=== PATIENT | male | born 1935 | race Caucasian/White ===

== ENCOUNTER → 2017-02-05 | Outpatient (CLI) | payer OTHER ==
[2017-02-05 14:27] LABS: BLOOD GAS BASE EXCESS -2.2 mmol/L (-2-2); BLOOD GAS CARBOXYHEMOGLOBIN 1.7 % (0-4); BLOOD GAS HCO3 22 mmol/L (22-26); BLOOD GAS O2 HGB SATURATION 94 % (90-100); BLOOD GAS PCO2 36 mmHg (38-42); BLOOD GAS PO2 85 mmHg (61-120); BLOOD GAS TOTAL HGB 14.4 G/DL (12.0-16.0); TEMP CORR TO 98.6
[2017-02-05 14:28] LABS: CRITICAL VALUE NO; FIO2 21 %; NUMBER OF ARTERIAL PUNCTURES 1; STAT NO; ULNAR PULSE PRESENT
--- NOTE | 2017-02-10 08:15 | RSPPFT ---
DATE OF PROCEDURE: 02/05/17 COMMENTS: VOLUMES DYNAMIC: FVC and FEV1 moderately reduced. STATIC: TLC and FRC normal; RV mildly increased. FLOWS: FEV1% mildly reduced; FEF 25-75 severely reduced. DIFFUSION: Moderately reduced. FLOW VOLUME LOOP: Pattern of variable intrathoracic airways obstruction. IMPRESSION: Moderately severe obstructive ventilatory defect with reduction in diffusion and mild hyperinflation consistent with emphysema. Airways resistance is increased and he has significant improvement post-bronchodilator.
== END ==
LOC: HRSP 12:30
PROVIDERS: ATTEND Internal Medicine
DX: J44.9 Chronic obstructive pulmonary disease, unspecified (principal)
CPT/HCPCS: 36600; 82805; 94060; 94620; 94726; 94729

== ENCOUNTER 2018-01-26 12:35 | Inpatient (IN) ==
--- NOTE | 2018-01-26 13:06 | ED ---
HPI General Chief complaint: Shortness of Breath/Dyspnea Stated complaint: SOB Time Seen by Provider: 01/26/18 12:52 History of Present Illness HPI narrative: Patient is a 2-year-old male here for evaluation of shortness of breath. Patient has been having shortness of breath for the last few months that has been getting worse recently, he can only walk 10 feet without getting short of breath. Patient has history of A. fib was started on Xarelto but he stopped it on his own because he was getting bruises, his history of diabetes that he says "it is diet-controlled", history of hypertension and congestive heart failure he takes lisinopril 40 mg in the morning. He has history of CAD status post quadruple bypass. He has bilateral leg swelling and redness that he follows up with the employment services director for it. Patient has history of COPD and takes anoro inhaler once in the morning, no albuterol, states that the anoro is not helping as much. Patient denies any chest pain or cough, no abdominal pain , no headache or blurred vision. Related Data Home Medications Medication Instructions Recorded Confirmed oxycodone 10 mg PO HS PRN 01/26/18 01/26/18 umeclidinium-vilanterol [Anoro 1 dose INHALATION DAILY 01/26/18 01/26/18 Ellipta] Allergies Allergy/AdvReac Type Severity Reaction Status Date / Time No Known Allergies Allergy Unverified 01/26/18 12:45 Review of Systems Except as stated in HPI: all other systems reviewed are negative PENDING SALE TO [facility] Medical History Medical History Bypass graft stenosis (Acute) COPD (chronic obstructive pulmonary disease) (Acute) Diabetes (Acute) Skin abnormalities (Acute) Social History Social History Substance History: No History of Abuse Second Hand Smoke Exposure: No Smoking Status: Never smoker How Often Do You Have a Drink Containing Alcohol: Monthly or less Recent Travel in [facility] within the Last 8 Weeks: No Recent Out of Country Travel within the Last 8 Weeks: No Immunization History Tetanus Immunization: >5 Years Hx Influenza Vaccine This Season: Yes Exam Narrative Exam Narrative: GENERAL: Alert oriented 3 no acute distress SKIN: Focused skin assessment warm/dry. HEAD: Atraumatic. Normocephalic. EYES: Pupils equal and round. No scleral icterus. No injection or drainage. ENT: No nasal bleeding or discharge. Mucous membranes pink and moist. NECK: Trachea midline. No JVD. CARDIOVASCULAR: Regular rate and rhythm. No murmur appreciated. RESPIRATORY: No accessory muscle use. Clear to auscultation. Breath sounds equal bilaterally. GASTROINTESTINAL: Abdomen soft, non-tender, nondistended. Hepatic and splenic margins not palpable. MUSCULOSKELETAL: Bilateral leg none pitting edema, mildly warm to touch, areas of old pus, no obvious deformities. No clubbing. No cyanosis. No edema. NEUROLOGICAL: Awake and alert. No obvious cranial nerve deficits. Motor grossly within normal limits. Normal speech. PSYCHIATRIC: Appropriate mood and affect; insight and judgment normal. Course Initial Documented Vital Signs Temperature 97.5 F L 01/26/18 12:42 Pulse Rate 76 01/26/18 12:42 Respiratory Rate 22 01/26/18 12:42 Blood Pressure 153/79 H 01/26/18 12:42 Pulse Oximetry 86 L 01/26/18 12:42 Last Documented Vital Signs Temperature 97.5 F L 01/26/18 12:42 Pulse Rate 62 01/26/18 14:55 Respiratory Rate 18 01/26/18 14:55 Blood Pressure 127/64 01/26/18 14:55 Pulse Oximetry 96 01/26/18 14:55 Medical Decision Making [facility] Narrative Medical decision making narrative: 82-year-old male history of COPD, congestive heart failure, hypertension, A. fib here for shortness of breath, EKG shows atrial fibrillation with reasonably controlled rate of 64, no ST segment elevation or depression. Patient is here for shortness of breath. D-dimer is mildly elevated, CAT scan shows bilateral pleural effusion which could explain the symptoms. Patient has mild hypokalemia of 3.2 I give him 40 mEq p.o. KCl meanwhile I give the patient 40 mg of Lasix IV to initiate diuresis and help with the symptoms. I believe the patient has acute exacerbation of CHF and will benefit from admission. Lab Data Result diagrams: 01/26/18 13:10 01/26/18 13:10 Lab Results 01/26/18 01/26/18 01/26/18 Range/Units 13:10 13:10 13:10 CBC w Diff Slide review pending WBC 6.2 (4.0-11.0) th/mm3 RBC 4.59 (4.50-5.90) mil/mm3 Hgb 14.0 (13.0-17.0) gm/dL Hct 41.4 (39.0-51.0) % MCV 90.4 (80.0-100.0) fL MCH 30.6 (27.0-34.0) pg MCHC 33.8 (32.0-36.0) % RDW 13.4 (11.6-17.2) % Plt Count 184 (150-450) th/mm3 MPV 8.0 (7.0-11.0) fL Neut % (Auto) 73.2 H (16.0-70.0) % Lymph % (Auto) 11.2 (9.0-44.0) % [place] % (Auto) 13.1 H (0.0-8.0) % Eos % (Auto) 2.3 (0.0-4.0) % Baso % (Auto) 0.2 (0.0-2.0) % Neut # (Auto) 4.6 (1.8-7.7) th/mm3 Lymph # (Auto) 0.7 L (1.0-4.8) th/mm3 [place] # (Auto) 0.8 (0.0-0.9) th/mm3 Eos # (Auto) 0.1 (0.0-0.4) th/mm3 Baso # (Auto) 0.0 (0.0-0.2) th/mm3 WBC Differential . Diff Scan Auto diff confirmed Differential Comment . PT 11.6 (9.8-11.6) sec INR 1.1 Ratio APTT 26.0 (24.3-30.1) sec D-Dimer Quant (PE/DVT) 1.31 H (0.00-0.50) mg/L FEU Puncture Site Patient Temperature O2 Saturation (90-100) % ABG pH (7.380-7.420) ABG pCO2 (38-42) mmHg ABG pO2 (61-120) mmHg ABG HCO3 (22-26) mmol/L ABG O2 Content (12.0-20.0) Vol % ABG Base Excess (-2-2) mmol/L ABG Methemoglobin (0-2) % Jose Test Hemoglobin (12.0-16.0) G/DL Carboxyhemoglobin (0-4) % O2 Delivery Device Inspired O2 % Critical Value Sodium 141 (136-145) meq/L Potassium 3.2 L (3.5-5.1) meq/L Chloride 107 (98-107) meq/L Carbon Dioxide 24.2 (21.0-32.0) meq/L Anion Gap 10 (5-15) meq/L BUN 19 H (7-18) mg/dL Creatinine 1.10 (0.60-1.30) mg/dL Estimated GFR 64 L (>89) mL/min Random Glucose 116 H (74-106) mg/dL Calcium 8.3 L (8.5-10.1) mg/dL Total Bilirubin 1.2 H (0.2-1.0) mg/dL AST 14 L (15-37) U/L ALT 14 (12-78) U/L Alkaline Phosphatase 97 (45-117) U/L Total Creatine Kinase 67 (39-308) U/L Troponin I Less than 0.02 L (0.02-0.05) ng/mL B-Natriuretic Peptide (0-100) pg/mL Total Protein 6.8 (6.4-8.2) g/dL Albumin 3.6 (3.4-5.0) g/dL Lipase 36 L (73-393) U/L Ur Collection Type Urine Color (Yellw/Straw) Urine Clarity (Clear) Urine pH (5.0-8.5) Ur Specific [place] (1.002-1.035) Urine Protein (Neg-Trace) mg/dL Urine Glucose (UA) (Negative) mg/dL Urine Ketones (Negative) mg/dL Urine Occult Blood (Negative) Urine Nitrate (Negative) Urine Bilirubin (Negative) Urine Urobilinogen (Less than 2) mg/dL Ur Leukocyte Esterase (Negative) Ur Squamous Epith Cells (0-5) /hpf Micro UA Comment Urine Culture Comments Urine Collection Time hours 01/26/18 01/26/18 01/26/18 Range/Units 13:10 13:30 13:35 CBC w Diff WBC (4.0-11.0) th/mm3 RBC (4.50-5.90) mil/mm3 Hgb (13.0-17.0) gm/dL Hct (39.0-51.0) % MCV (80.0-100.0) fL MCH (27.0-34.0) pg MCHC (32.0-36.0) % RDW (11.6-17.2) % Plt Count (150-450) th/mm3 MPV (7.0-11.0) fL Neut % (Auto) (16.0-70.0) % Lymph % (Auto) (9.0-44.0) % [place] % (Auto) (0.0-8.0) % Eos % (Auto) (0.0-4.0) % Baso % (Auto) (0.0-2.0) % Neut # (Auto) (1.8-7.7) th/mm3 Lymph # (Auto) (1.0-4.8) th/mm3 [place] # (Auto) (0.0-0.9) th/mm3 Eos # (Auto) (0.0-0.4) th/mm3 Baso # (Auto) (0.0-0.2) th/mm3 WBC Differential Diff Scan Differential Comment PT (9.8-11.6) sec INR Ratio APTT (24.3-30.1) sec D-Dimer Quant (PE/DVT) (0.00-0.50) mg/L FEU Puncture Site Right radial Patient Temperature 98.6 O2 Saturation 89 L* (90-100) % ABG pH 7.43 H (7.380-7.420) ABG pCO2 37 L (38-42) mmHg ABG pO2 64 (61-120) mmHg ABG HCO3 24 (22-26) mmol/L ABG O2 Content 17.7 (12.0-20.0) Vol % ABG Base Excess -0.1 (-2-2) mmol/L ABG Methemoglobin 1.2 (0-2) % Jose Test Present Hemoglobin 14.1 (12.0-16.0) G/DL Carboxyhemoglobin 2.2 (0-4) % O2 Delivery Device Room air Inspired O2 21 % Critical Value Yes Sodium (136-145) meq/L Potassium (3.5-5.1) meq/L Chloride (98-107) meq/L Carbon Dioxide (21.0-32.0) meq/L Anion Gap (5-15) meq/L BUN (7-18) mg/dL Creatinine (0.60-1.30) mg/dL Estimated GFR (>89) mL/min Random Glucose (74-106) mg/dL Calcium (8.5-10.1) mg/dL Total Bilirubin (0.2-1.0) mg/dL AST (15-37) U/L ALT (12-78) U/L Alkaline Phosphatase (45-117) U/L Total Creatine Kinase (39-308) U/L Troponin I (0.02-0.05) ng/mL B-Natriuretic Peptide 340 H (0-100) pg/mL Total Protein (6.4-8.2) g/dL Albumin (3.4-5.0) g/dL Lipase (73-393) U/L Ur Collection Type Clean catch Urine Color Yellow (Yellw/Straw) Urine Clarity Clear (Clear) Urine pH 5.5 (5.0-8.5) Ur Specific [place] 1.015 (1.002-1.035) Urine Protein Trace (Neg-Trace) mg/dL Urine Glucose (UA) Negative (Negative) mg/dL Urine Ketones Negative (Negative) mg/dL Urine Occult Blood Negative (Negative) Urine Nitrate Negative (Negative) Urine Bilirubin Negative (Negative) Urine Urobilinogen 0.2 (Less than 2) mg/dL Ur Leukocyte Esterase Negative (Negative) Ur Squamous Epith Cells 0-5 (0-5) /hpf Micro UA Comment Culture not ind Urine Culture Comments Culture not ind Urine Collection Time 1335 hours Imaging Data Radiologist's impression: ITS Impressions Chest CTA 01/26/18 13:36 CONCLUSION: 1. No pulmonary embolus. Main pulmonary artery is prominent suggesting some degree of pulmonary hypertension. 2. Moderate bilateral pleural effusions. This probably explains patient's current clinical symptoms. 3. Prominent 2.3 cm lymph node juxtaposed between the esophagus and the aorta near the AP window. Additional prominent lymph node in the right subpleural distribution at the thoracoabdominal junction. This may be reactive. 4. Mild emphysematous changes scattered subpleural cysts. 5. CT findings concerning for some degree of cirrhosis with a small, nodular liver and some ascites in the upper abdomen. Discharge Plan Physicians Team ED Provider: Jan Purdy Primary Care Provider: Jluis Luna Rxs /Orders / Referrals /Forms Prescriptions: No Action oxycodone 10 mg Tablet 10 mg PO HS PRN (Reason: Pain) RF: 0 umeclidinium-vilanterol [Anoro Ellipta] 62.5-25 mcg/actuation Blister With Device 1 dose Inhalation DAILY RF: 0 Discharge Interventions Interventions: Vital Signs Last Done: 01/26/18 14:55 Status ED Status: Pending Admission
[2018-01-26 13:23] LABS: Baso % (Auto) 0.2 % (0.0-2.0); Eos # (Auto) 0.1 th/mm3 (0.0-0.4); Eos % (Auto) 2.3 % (0.0-4.0); Hematocrit 41.4 % (39.0-51.0); Lymph # (Auto) 0.7 th/mm3 (1.0-4.8); Lymph % (Auto) 11.2 % (9.0-44.0); Mean Corpuscular HGB Conc 33.8 % (32.0-36.0); Mean Corpuscular Hemoglobin 30.6 pg (27.0-34.0); Mean Corpuscular Volume 90.4 fL (80.0-100.0); Mono # (Auto) 0.8 th/mm3 (0.0-0.9); Mono % (Auto) 13.1 % (0.0-8.0); Neut # (Auto) 4.6 th/mm3 (1.8-7.7); Neut % (Auto) 73.2 % (16.0-70.0); Platelet Count 184 th/mm3 (150-450); Red Blood Count 4.59 mil/mm3 (4.50-5.90); Red Cell Distribution Width 13.4 % (11.6-17.2); White Blood Count 6.2 th/mm3 (4.0-11.0)
[2018-01-26 13:25] LABS: Chloride 107 meq/L (98-107); Potassium 3.2 meq/L (3.5-5.1); Sodium 141 meq/L (136-145)
[2018-01-26 13:28] LABS: Albumin 3.6 g/dL (3.4-5.0); Calcium 8.3 mg/dL (8.5-10.1)
[2018-01-26 13:29] LABS: Anion Gap 10 meq/L (5-15); Blood Urea Nitrogen 19 mg/dL (7-18); Carbon Dioxide 24.2 meq/L (21.0-32.0); Glucose,Random 116 mg/dL (74-106); Lipase 36 U/L (73-393)
[2018-01-26 13:31] LABS: D-Dimer 1.31 mg/L FEU (0.00-0.50); INR 1.1 Ratio; Prothrombin Time 11.6 sec (9.8-11.6)
[2018-01-26 13:32] LABS: Alanine Aminotransferase 14 U/L (12-78); Aspartate Aminotransferase 14 U/L (15-37); Glomerular Filtration Rate 64 mL/min (>89)
[2018-01-26 13:34] LABS: Total Protein 6.8 g/dL (6.4-8.2)
[2018-01-26 13:35] LABS: Alkaline Phosphatase 97 U/L (45-117); Creatine Kinase 67 U/L (39-308)
[2018-01-26 13:38] LABS: ABG Base Excess -0.1 mmol/L (-2-2); ABG PCO2 37 mmHg (38-42); ABG PO2 64 mmHg (61-120)
[2018-01-26 14:10] LABS: Bilirubin,Urine Negative (Negative); Clarity,Urine Clear (Clear); Color,Urine Yellow (Yellw/Straw); Glucose,Urine (UA) Negative (Negative); Leukocyte Esterase,Urine Negative (Negative); Nitrite,Urine Negative (Negative); PH,Urine 5.5 (5.0-8.5); Specific Gravity,Urine 1.015 (1.002-1.035); Urobilinogen,Urine 0.2 mg/dL (Less than 2)
[2018-01-26 14:32] LABS: Collection Time,Urine 1335 hours
[2018-01-26 14:33] LABS: Squamous Epithelial Cell,Urine 0-5 /hpf (0-5)
--- NOTE | 2018-01-26 14:40 | ECG ---
Date Performed: 01/26/2018 Time Performed: 12:54:04 PTAGE: 82 years EKG: PROBABLE ATRIAL FIBRILLATION POSSIBLE ANTERIOR MYOCARDIAL INFARCTION ABNORMAL RHYTHM ECG NO PREVIOUS TRACING DOCTOR: Aurelio Alonso Interpretating Date/Time 01/26/2018 14:40:01
--- NOTE | 2018-01-26 14:59 | CT ---
EXAM DATE: 01/26/2018 2:40 PM EDT AGE/SEX: 82 years / Male INDICATIONS: Short of breath. CLINICAL DATA: This is the patient's initial encounter. Patient reports that signs and symptoms have been present for 1 week and indicates a pain score of 0/10. MEDICAL/SURGICAL HISTORY: Cardiovascular disease. Chronic obstructive pulmonary disease. Congesti ve heart failure. A-fibrillation. Diabetes. Anticoagulant therapy. CABG. RADIATION DOSE: 21.29 CTDI (mGy) COMPARISON: No prior exams available for comparison. TECHNIQUE: Volumetric scanning was performed using a multi-row detector CT scanner during bolus infu jesus of 65 ml Omnipaque 350 (iohexol) nonionic water-soluble contrast as a single exam dose. The brian a was post processed with a variety of visualization algorithms including full volume maximum intensi ty projection and sliding thin slab reformation. Using automated exposure control and adjustment of the mA and/or kV according to patient size, radiation dose was kept as low as reasonably achievable t o obtain optimal diagnostic quality images. DICOM format image data is available electronically for review and comparison. FINDINGS: Pulmonary Arteries: No filling defects are seen in the pulmonary arteries out to the subsegmental ve ssels. The left and right pulmonary arteries are normal in diameter. Main pulmonary artery is promin ent. Lung: Bibasilar atelectatic changes with a few scattered subpleural cysts. Effusion: Moderate sized bilateral pleural effusions. Mediastinum: No evidence of mediastinal or hilar adenopathy. Other: The axilla is unremarkable. Liver is small and nodular suggesting some degree of cirrhosis. T here is small amount of peritoneal ascites. CONCLUSION: 1. No pulmonary embolus. Main pulmonary artery is prominent suggesting some degree of pulmonary hype rtension. 2. Moderate bilateral pleural effusions. This probably explains patient's current clinical symptoms. 3. Prominent 2.3 cm lymph node juxtaposed between the esophagus and the aorta near the AP window. Ad ditional prominent lymph node in the right subpleural distribution at the thoracoabdominal junction. This may be reactive. 4. Mild emphysematous changes scattered subpleural cysts. 5. CT findings concerning for some degree of cirrhosis with a small, nodular liver and some ascites in the upper abdomen. Electronically signed by: Eduardo Batista MD 01/26/2018 2:58 PM EDT
[2018-01-26] MEDS ORDERED: MethylPREDNISolone Sod Succinate Inj 125 MG/2 ML Vial IV.PUSH ONE (15:11)
--- NOTE | 2018-01-26 15:30 | P.HP ---
History of Present Illness Primary Care Physician: Jluis Luna MD History of Present Illness: This is a pleasant 82-year-old male patient with a history of CHF, COPD, diabetes who presented to the ED with complaints of shortness of breath 2 weeks. Patient states that his symptoms started 2 weeks ago, he has noticed increased shortness of breath especially with exertion, states he has been unable to ambulate greater than 10 feet without having to rest. Patient does have a history of CHF, denies any recent echocardiogram. He is on Lasix but states he does not feel like this is working very well for him. He denies any use of home oxygen. Lives at home with his nephew. He also admits to increasing bilateral leg swelling. He does follow with a product scientist, on aware of name at this time, he states that he was placed on Xarelto roughly 1 month ago for chronic atrial fibrillation. Patient states he stopped taking the Xarelto replete 12 days ago due to complaints of feeling like he was getting weaker. He states that he "does not think the benefit outweighs the risk". Patient denies any recent illness including fever, chills, cough, abdominal pain, nausea, vomiting, diarrhea or dysuria. 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 Patient also seen by clinical rehabilitation liaison for lower extremity PVD. Upon presentation patient's d-dimer was 1.31. Underwent a CTA which shows no PE. Does show some bilateral pleural effusions. Also some pulmonary hypertension. BNP is elevated. - Diagnosis (1) Acute exacerbation of CHF (congestive heart failure) Inpatient Certification: I certify that the inpatient services were ordered in accordance with Medicare regulations governing the order. This includes certification that hospital inpatient services are reasonable and necessary and in the case of services not specified as inpatient-only under 42 CFR 419.22(n), that they are appropriately provided as inpatient services in accordance to with the 2-midnight benchmark under 43 CFR 412.3(e) Review of Systems All other systems reviewed negative except as stated in HPI PMFSH - History History Provided By: Patient - Medical History Medical History: Medical History (Last Updated 01/26/18 @ 15:43 by Jenny Pizano) Atrial fibrillation Bypass graft stenosis COPD (chronic obstructive pulmonary disease) Congestive heart failure Diabetes Skin abnormalities - Surgical History Surgical History: Surgical History (Last Updated 01/26/18 @ 15:43 by Jenny Pizano) History of knee replacement, total S/P CABG (coronary artery bypass graft) - Family History Family History: Family History (Last Updated 01/26/18 @ 15:44 by Jenny Pizano) Other No pertinent family history - Tobacco History Second Hand Smoke Exposure: No Tobacco Use In Past 30 Days: No Smoking Status: Never smoker - Alcohol History How Often Do You Have a Drink Containing Alcohol: Monthly or less - Substance Use History Substance History: No History of Abuse - Travel History Recent Travel in the [place] Within the Last 8 Weeks: No Recent Travel Out of the Country Within the Last 8 Weeks: No - Immunization History Tetanus Immunization: >5 Years Hx Influenza Vaccine This Season: Yes Medications and Allergies Allergies Allergy/AdvReac Type Severity Reaction Status Date / Time No Known Allergies Allergy Unverified 01/26/18 12:45 Home Medications Medication Instructions Recorded Confirmed Type oxycodone 10 mg PO HS PRN 01/26/18 01/26/18 History umeclidinium-vilanterol [Anoro 1 dose INHALATION DAILY 01/26/18 01/26/18 History Ellipta] Exam Vital signs: Vital Signs 01/26/18 12:42 01/26/18 13:01 01/26/18 13:42 Temperature 97.5 F L Pulse Rate 76 66 Respiratory Rate 22 18 Blood Pressure 153/79 H 142/75 H Pulse Oximetry 86 L 92 L 96 01/26/18 14:55 Temperature Pulse Rate 62 Respiratory Rate 18 Blood Pressure 127/64 Pulse Oximetry 96 Intake & Output 01/25/18 01/26/18 01/26/18 18:59 06:59 18:59 Output Total 100 / 100 Balance -100 / -100 Weight 135.5 kg Output: Urine 100 / 100 Narrative: GENERAL: Well-developed, obese elderly male patient in [facility]. On supplemental O2 SKIN: Warm and dry. No rash. HEAD: Normocephalic. Atraumatic. EYES: Pupils equal and round. No scleral icterus. No injection or drainage. ENT: No nasal bleeding or discharge. Mucous membranes pink and moist. NECK: Supple. Trachea midline. CARDIOVASCULAR: Irregularly irregular rhythm. RESPIRATORY: No accessory muscle use. Crackles noted throughout. Breath sounds equal bilaterally. GASTROINTESTINAL: Abdomen soft, non-tender, nondistended. Round. Normoactive bowel sounds x4. MUSCULOSKELETAL: No obvious deformities. Bilateral lower extremities with chronic peripheral vascular disease, 1+ edema NEUROLOGICAL: Awake and alert. No obvious cranial nerve deficits. Motor grossly within normal limits. 5/5 muscle strength in bilateral upper and lower extremities. Normal speech. PSYCHIATRIC: Appropriate mood and affect; insight and judgment normal. - Constitutional no acute distress - Routine HEENT Exam Head: Present: normocephalic Eye: Present: EOMI, PERRL ENT: Present: mucous membranes moist - Routine Neck Exam Present: supple - Routine Abdominal Exam Present: soft - Routine Extremities Exam Present: edema - Routine Neurological Exam Present: alert, oriented X3 Results - Labs CBC & Chem 7: 01/26/18 13:10 01/26/18 13:10 Labs: Laboratory Results - last 24 hr 01/26/18 01/26/18 01/26/18 13:10 13:10 13:10 CBC w Diff Slide review pending WBC 6.2 RBC 4.59 Hgb 14.0 Hct 41.4 MCV 90.4 MCH 30.6 MCHC 33.8 RDW 13.4 Plt Count 184 MPV 8.0 Neut % (Auto) 73.2 H Lymph % (Auto) 11.2 [place] % (Auto) 13.1 H Eos % (Auto) 2.3 Baso % (Auto) 0.2 Neut # (Auto) 4.6 Lymph # (Auto) 0.7 L [place] # (Auto) 0.8 Eos # (Auto) 0.1 Baso # (Auto) 0.0 WBC Differential . Diff Scan Auto diff confirmed Differential Comment . PT 11.6 INR 1.1 APTT 26.0 D-Dimer Quant (PE/DVT) 1.31 H Puncture Site Patient Temperature O2 Saturation ABG pH ABG pCO2 ABG pO2 ABG HCO3 ABG O2 Content ABG Base Excess ABG Methemoglobin Jose Test Hemoglobin Carboxyhemoglobin O2 Delivery Device Inspired O2 Critical Value Sodium 141 Potassium 3.2 L Chloride 107 Carbon Dioxide 24.2 Anion Gap 10 BUN 19 H Creatinine 1.10 Estimated GFR 64 L Random Glucose 116 H Calcium 8.3 L Total Bilirubin 1.2 H AST 14 L ALT 14 Alkaline Phosphatase 97 Total Creatine Kinase 67 Troponin I Less than 0.02 L B-Natriuretic Peptide Total Protein 6.8 Albumin 3.6 Lipase 36 L Ur Collection Type Urine Color Urine Clarity Urine pH Ur Specific [place] Urine Protein Urine Glucose (UA) Urine Ketones Urine Occult Blood Urine Nitrate Urine Bilirubin Urine Urobilinogen Ur Leukocyte Esterase Ur Squamous Epith Cells Micro UA Comment Urine Culture Comments Urine Collection Time 01/26/18 01/26/18 01/26/18 13:10 13:30 13:35 CBC w Diff WBC RBC Hgb Hct MCV MCH MCHC RDW Plt Count MPV Neut % (Auto) Lymph % (Auto) [place] % (Auto) Eos % (Auto) Baso % (Auto) Neut # (Auto) Lymph # (Auto) [place] # (Auto) Eos # (Auto) Baso # (Auto) WBC Differential Diff Scan Differential Comment PT INR APTT D-Dimer Quant (PE/DVT) Puncture Site Right radial Patient Temperature 98.6 O2 Saturation 89 L* ABG pH 7.43 H ABG pCO2 37 L ABG pO2 64 ABG HCO3 24 ABG O2 Content 17.7 ABG Base Excess -0.1 ABG Methemoglobin 1.2 Jose Test Present Hemoglobin 14.1 Carboxyhemoglobin 2.2 O2 Delivery Device Room air Inspired O2 21 Critical Value Yes Sodium Potassium Chloride Carbon Dioxide Anion Gap BUN Creatinine Estimated GFR Random Glucose Calcium Total Bilirubin AST ALT Alkaline Phosphatase Total Creatine Kinase Troponin I B-Natriuretic Peptide 340 H Total Protein Albumin Lipase Ur Collection Type Clean catch Urine Color Yellow Urine Clarity Clear Urine pH 5.5 Ur Specific [place] 1.015 Urine Protein Trace Urine Glucose (UA) Negative Urine Ketones Negative Urine Occult Blood Negative Urine Nitrate Negative Urine Bilirubin Negative Urine Urobilinogen 0.2 Ur Leukocyte Esterase Negative Ur Squamous Epith Cells 0-5 Micro UA Comment Culture not ind Urine Culture Comments Culture not ind Urine Collection Time 1335 - Imaging Impressions Chest CTA 01/26/18 13:36 CONCLUSION: 1. No pulmonary embolus. Main pulmonary artery is prominent suggesting some degree of pulmonary hypertension. 2. Moderate bilateral pleural effusions. This probably explains patient's current clinical symptoms. 3. Prominent 2.3 cm lymph node juxtaposed between the esophagus and the aorta near the AP window. Additional prominent lymph node in the right subpleural distribution at the thoracoabdominal junction. This may be reactive. 4. Mild emphysematous changes scattered subpleural cysts. 5. CT findings concerning for some degree of cirrhosis with a small, nodular liver and some ascites in the upper abdomen. Caprini VTE Risk Assessment Caprini VTE Risk Assessment: Moderate/High Risk (score >= 2) Caprini Risk Assessment Model: Point Value = 1 Point Value = 2 Point Value = 3 Point Value = 5 Age 41-60 Minor surgery BMI > 25 kg/m2 Swollen legs Varicose veins or History of unexplained or recurrent spontaneous Oral contraceptives or hormone replacement Sepsis (< 1 month) Serious lung disease, including pneumonia (< 1 month) Abnormal pulmonary function Acute myocardial infarction Congestive heart failure (< 1 month) History of inflammatory bowel disease Medical patient at bed rest Age 61-74 Arthroscopic surgery Major open surgery (> 45 min) Laparoscopic surgery (> 45 min) Malignancy Confined to bed (> 72 hours) Immobilizing plaster cast Central venous access Age >= 75 History of VTE Family history of VTE Factor V Leiden Prothrombin [id number] Lupus anticoagulant Anticardiolipin antibodies Elevated serum homocysteine Heparin-induced thrombocytopenia Other congenital or acquired thrombophilia Stroke (< 1 month) Elective arthroplasty Hip, pelvis, or leg fracture Acute spinal cord injury (< 1 month) Prophylaxis Regimen: Total Risk Factor Score Risk Level Prophylaxis Regimen 0-1 Low Early ambulation 2 Moderate Order ONE of the following: *Sequential Compression Device (SCD) *Heparin 5000 units SQ BID 3-4 Higher Order ONE of the following medications: *Heparin 5000 units SQ TID *Enoxaparin/Lovenox 40 mg SQ daily (WT < 150 kg, CrCl > 30 mL/min) *Enoxaparin/Lovenox 30 mg SQ daily (WT < 150 kg, CrCl > 10-29 mL/min) *Enoxaparin/Lovenox 30 mg SQ BID (WT < 150 kg, CrCl > 30 mL/min) AND/OR *Sequential Compression Device (SCD) 5 or more Highest Order ONE of the following medications: *Heparin 5000 units SQ TID (Preferred with Epidurals) *Enoxaparin/Lovenox 40 mg SQ daily (WT < 150 kg, CrCl > 30 mL/min) *Enoxaparin/Lovenox 30 mg SQ daily (WT < 150 kg, CrCl > 10-29 mL/min) *Enoxaparin/Lovenox 30 mg SQ BID (WT < 150 kg, CrCl > 30 mL/min) AND *Sequential Compression Device (SCD) Assessment and Plan - Assessment (1) Acute exacerbation of CHF (congestive heart failure) Code(s): I50.9 - Heart failure, unspecified Status: Acute - Plan This is an 82-year-old male patient with: Acute exacerbation of CHF, unspecified type with hypoxia and need for supplemental O2. Bilateral pleural effusions suspect secondary above Pulmonary hypertension suspect secondary to above -Patient presented with shortness of breath, bilateral leg swelling. BNP mildly elevated. -D-dimer 1.3 upon presentation. CTA ordered ruled out PE. Pulmonary hypertension noted as well as moderate pleural effusions. -Started on Lasix 40 mg IV daily. Monitor intake and output closely. -Echocardiogram ordered, pending. -Supplemental O2 as needed, keep sats greater than 92%. -Will assess response to diuretics in a.m., depending on response and improvement of symptoms, may further evaluate pleural effusions and ascites. -Does admit to noncompliance regarding CHF management including daily weights and low sodium diet. Education provided. -Supportive care. Hypokalemia, mild: K3.2. Status post replacement. Follow BMP. Diabetes, diet controlled - Hemoglobin A1c ordered, pending. Follow. - Accu-Chek before meals at bedtime, sliding scale, cover as needed. COPD: Methylprednisone given in ED. Will continue IV steroids. Monitor for clinical improvement. Continue duo nebs. Atrial fibrillation, controlled rate: Will continue cardiac telemetry. Patient states he continued his Xarelto at home, states he does not want to take it. On Lovenox. Bilateral lower extremity PVD - Discoloration. Trace edema. This is chronic for patient. Follows with a clinical rehabilitation liaison. - Encourage elevation. Monitor. DVT prophylaxis: Lovenox.
[2018-01-26] MEDS ORDERED: Acetaminophen 325 MG Tablet PO PRN (15:46)
[2018-01-26] MEDS ORDERED: Bisacodyl 10 MG Supp RECTAL PRN (15:46)
[2018-01-26] MEDS ORDERED: Dextrose 50% in Water 50 ML Vial IV.PUSH PRN (15:58)
[2018-01-26] MEDS ORDERED: MethylPREDNISolone Sod Succinate Inj 40 MG/ML Vial IV.PUSH SCH (16:00)
[2018-01-26] MEDS: Insulin NovoLOG Aspart Correctional Sugar Inj SQ SCH ×2 (16:09→21:42)
[2018-01-26] MEDS ORDERED: Temazepam 15 MG Capsule PO PRN (21:00)
[2018-01-26] MEDS: Senna/Docusate Sodium 8.6/50 MG Tablet PO SCH (21:33)
[2018-01-26] MEDS: MethylPREDNISolone Sod Succinate Inj 40 MG/ML Vial IV.PUSH SCH (23:11)
[2018-01-27] MEDS: MethylPREDNISolone Sod Succinate Inj 40 MG/ML Vial IV.PUSH SCH ×3 (05:34→18:13)
--- NOTE | 2018-01-27 07:38 | P.PNIM ---
Subjective Interval history: Follow-up CHF exacerbation. Patient seen and examined, and bathroom washing up. Does admit to some shortness of breath overnight continued on 2 L nasal cannula. No improvement with shortness of breath. Complaints of abdominal fullness, although eating well, no abdominal pain, n/v/d. Worsening erythema on lower extremities than normal. Denies any pain. Physical Exam Vital signs: Vital Signs 01/26/18 12:42 01/26/18 13:01 01/26/18 13:42 Temperature 97.5 F L Pulse Rate 76 66 Respiratory Rate 22 18 Blood Pressure 153/79 H 142/75 H Pulse Oximetry 86 L 92 L 96 01/26/18 14:55 01/26/18 15:48 01/26/18 15:53 Temperature Pulse Rate 62 59 L 63 Respiratory Rate 18 16 18 Blood Pressure 127/64 113/56 L Pulse Oximetry 96 96 01/26/18 16:00 01/26/18 16:43 01/26/18 20:00 Temperature 96.6 F L 96.3 F L Pulse Rate 66 65 Respiratory Rate 20 20 Blood Pressure 144/65 H 121/72 Pulse Oximetry 93 L 96 93 L 01/27/18 00:00 01/27/18 04:00 01/27/18 07:24 Temperature 96 F L 96 F L Pulse Rate 72 71 90 Respiratory Rate 20 20 20 Blood Pressure 131/92 H 143/81 H Pulse Oximetry 96 96 94 L Intake & Output 01/26/18 01/27/18 01/27/18 18:59 06:59 18:59 Intake Total 240 / 240 Output Total 900 / 900 525 / 525 Balance -900 / -900 -285 / -285 Weight 135.5 kg 138.7 kg Intake: Oral 240 / 240 Output: Urine 900 / 900 525 / 525 Other: # Voids 3 Date of Last Bowel Movement 01/26/18 01/26/18 Weight On Admission 135.5 kg Narrative: GENERAL: Well-developed, obese elderly male patient in [facility]. On supplemental O2 SKIN: Warm and dry. No rash. HEAD: Normocephalic. Atraumatic. EYES: Pupils equal and round. No scleral icterus. No injection or drainage. ENT: No nasal bleeding or discharge. Mucous membranes pink and moist. NECK: Supple. Trachea midline. CARDIOVASCULAR: Irregularly irregular rhythm. RESPIRATORY: No accessory muscle use. Crackles noted throughout. Breath sounds equal bilaterally. GASTROINTESTINAL: Abdomen soft, non-tender, nondistended. Round. Normoactive bowel sounds x4. MUSCULOSKELETAL: No obvious deformities. Bilateral lower extremities with chronic peripheral vascular disease, 1+ edema NEUROLOGICAL: Awake and alert. No obvious cranial nerve deficits. Motor grossly within normal limits. 5/5 muscle strength in bilateral upper and lower extremities. Normal speech. PSYCHIATRIC: Appropriate mood and affect; insight and judgment normal. Results - Labs CBC & Chem 7: 01/27/18 09:30 01/27/18 09:30 Laboratory Results - last 24 hr 01/26/18 01/26/18 01/26/18 13:10 13:10 13:10 CBC w Diff Slide review pending WBC 6.2 RBC 4.59 Hgb 14.0 Hct 41.4 MCV 90.4 MCH 30.6 MCHC 33.8 RDW 13.4 Plt Count 184 MPV 8.0 Neut % (Auto) 73.2 H Lymph % (Auto) 11.2 [place] % (Auto) 13.1 H Eos % (Auto) 2.3 Baso % (Auto) 0.2 Neut # (Auto) 4.6 Lymph # (Auto) 0.7 L [place] # (Auto) 0.8 Eos # (Auto) 0.1 Baso # (Auto) 0.0 WBC Differential . Diff Scan Auto diff confirmed Differential Comment . PT 11.6 INR 1.1 APTT 26.0 D-Dimer Quant (PE/DVT) 1.31 H Puncture Site Patient Temperature O2 Saturation ABG pH ABG pCO2 ABG pO2 ABG HCO3 ABG O2 Content ABG Base Excess ABG Methemoglobin Jose Test Hemoglobin Carboxyhemoglobin O2 Delivery Device Inspired O2 Critical Value Sodium 141 Potassium 3.2 L Chloride 107 Carbon Dioxide 24.2 Anion Gap 10 BUN 19 H Creatinine 1.10 Estimated GFR 64 L POC Glucose Random Glucose 116 H Calcium 8.3 L Total Bilirubin 1.2 H AST 14 L ALT 14 Alkaline Phosphatase 97 Total Creatine Kinase 67 Troponin I Less than 0.02 L B-Natriuretic Peptide Total Protein 6.8 Albumin 3.6 Lipase 36 L Ur Collection Type Urine Color Urine Clarity Urine pH Ur Specific [place] Urine Protein Urine Glucose (UA) Urine Ketones Urine Occult Blood Urine Nitrate Urine Bilirubin Urine Urobilinogen Ur Leukocyte Esterase Ur Squamous Epith Cells Micro UA Comment Urine Culture Comments Urine Collection Time 01/26/18 01/26/18 01/26/18 13:10 13:30 13:35 CBC w Diff WBC RBC Hgb Hct MCV MCH MCHC RDW Plt Count MPV Neut % (Auto) Lymph % (Auto) [place] % (Auto) Eos % (Auto) Baso % (Auto) Neut # (Auto) Lymph # (Auto) [place] # (Auto) Eos # (Auto) Baso # (Auto) WBC Differential Diff Scan Differential Comment PT INR APTT D-Dimer Quant (PE/DVT) Puncture Site Right radial Patient Temperature 98.6 O2 Saturation 89 L* ABG pH 7.43 H ABG pCO2 37 L ABG pO2 64 ABG HCO3 24 ABG O2 Content 17.7 ABG Base Excess -0.1 ABG Methemoglobin 1.2 Jose Test Present Hemoglobin 14.1 Carboxyhemoglobin 2.2 O2 Delivery Device Room air Inspired O2 21 Critical Value Yes Sodium Potassium Chloride Carbon Dioxide Anion Gap BUN Creatinine Estimated GFR POC Glucose Random Glucose Calcium Total Bilirubin AST ALT Alkaline Phosphatase Total Creatine Kinase Troponin I B-Natriuretic Peptide 340 H Total Protein Albumin Lipase Ur Collection Type Clean catch Urine Color Yellow Urine Clarity Clear Urine pH 5.5 Ur Specific [place] 1.015 Urine Protein Trace Urine Glucose (UA) Negative Urine Ketones Negative Urine Occult Blood Negative Urine Nitrate Negative Urine Bilirubin Negative Urine Urobilinogen 0.2 Ur Leukocyte Esterase Negative Ur Squamous Epith Cells 0-5 Micro UA Comment Culture not ind Urine Culture Comments Culture not ind Urine Collection Time 1335 01/26/18 01/26/18 15:52 21:36 CBC w Diff WBC RBC Hgb Hct MCV MCH MCHC RDW Plt Count MPV Neut % (Auto) Lymph % (Auto) [place] % (Auto) Eos % (Auto) Baso % (Auto) Neut # (Auto) Lymph # (Auto) [place] # (Auto) Eos # (Auto) Baso # (Auto) WBC Differential Diff Scan Differential Comment PT INR APTT D-Dimer Quant (PE/DVT) Puncture Site Patient Temperature O2 Saturation ABG pH ABG pCO2 ABG pO2 ABG HCO3 ABG O2 Content ABG Base Excess ABG Methemoglobin Jose Test Hemoglobin Carboxyhemoglobin O2 Delivery Device Inspired O2 Critical Value Sodium Potassium Chloride Carbon Dioxide Anion Gap BUN Creatinine Estimated GFR POC Glucose 108 178 H Random Glucose Calcium Total Bilirubin AST ALT Alkaline Phosphatase Total Creatine Kinase Troponin I B-Natriuretic Peptide Total Protein Albumin Lipase Ur Collection Type Urine Color Urine Clarity Urine pH Ur Specific [place] Urine Protein Urine Glucose (UA) Urine Ketones Urine Occult Blood Urine Nitrate Urine Bilirubin Urine Urobilinogen Ur Leukocyte Esterase Ur Squamous Epith Cells Micro UA Comment Urine Culture Comments Urine Collection Time - Imaging Impressions Chest CTA 01/26/18 13:36 CONCLUSION: 1. No pulmonary embolus. Main pulmonary artery is prominent suggesting some degree of pulmonary hypertension. 2. Moderate bilateral pleural effusions. This probably explains patient's current clinical symptoms. 3. Prominent 2.3 cm lymph node juxtaposed between the esophagus and the aorta near the AP window. Additional prominent lymph node in the right subpleural distribution at the thoracoabdominal junction. This may be reactive. 4. Mild emphysematous changes scattered subpleural cysts. 5. CT findings concerning for some degree of cirrhosis with a small, nodular liver and some ascites in the upper abdomen. Assessment and Plan - Assessment (1) Acute exacerbation of CHF (congestive heart failure) Code(s): I50.9 - Heart failure, unspecified Status: Acute - Plan This is an 82-year-old male patient with: Acute exacerbation of CHF, unspecified type with hypoxia and need for supplemental O2. Bilateral pleural effusions suspect secondary above Pulmonary hypertension suspect secondary to above -Patient presented with shortness of breath, bilateral leg swelling. BNP mildly elevated. -D-dimer 1.3 upon presentation. CTA ordered ruled out PE. Pulmonary hypertension noted as well as moderate pleural effusions. -Will order for thoracentesis. -Started on Lasix 40 mg IV daily. Will change to BID. Monitor intake and output closely. -Echocardiogram ordered, pending. -Supplemental O2 as needed, keep sats greater than 92%. Requiring 2 L NC. -Does admit to noncompliance regarding CHF management including daily weights and low sodium diet. Education provided. -Supportive care. Hypokalemia, mild: Resolved. K3.2. Status post replacement. Follow BMP. Diabetes, diet controlled - Hemoglobin A1c ordered, pending. Follow. - Accu-Chek before meals at bedtime, sliding scale, cover as needed. COPD: Methylprednisone given in ED. Will continue IV steroids. Monitor for clinical improvement. Continue duo nebs. Atrial fibrillation, controlled rate: Will continue cardiac telemetry. Patient states he continued his Xarelto at home, Will restart after thoracentesis. Bilateral lower extremity PVD Bilateral lower extremity cellulitis - Discoloration. Trace edema. This is chronic for patient. Follows with a staff forester. Worsening erythema overnight. Will start Clindamycin. - Encourage elevation. Monitor. DVT prophylaxis: Xarelto.
[2018-01-27] MEDS: Senna/Docusate Sodium 8.6/50 MG Tablet PO SCH ×2 (08:33→22:18)
[2018-01-27] MEDS: Insulin NovoLOG Aspart Correctional Sugar Inj SQ SCH ×4 (08:38→22:17)
[2018-01-27] MEDS ORDERED: Enoxaparin Inj 40 MG/0.4 ML Syringe SQ SCH (09:00)
[2018-01-27 09:51] LABS: Hematocrit 43.1 % (39.0-51.0); Hemoglobin 14.3 gm/dL (13.0-17.0); Mean Corpuscular HGB Conc 33.2 % (32.0-36.0); Mean Corpuscular Hemoglobin 30.2 pg (27.0-34.0); Mean Platelet Volume 8.7 fL (7.0-11.0); Platelet Count 204 th/mm3 (150-450); Red Blood Count 4.73 mil/mm3 (4.50-5.90); Red Cell Distribution Width 13.7 % (11.6-17.2)
[2018-01-27 10:03] LABS: Albumin 3.8 g/dL (3.4-5.0); Calcium 8.5 mg/dL (8.5-10.1)
[2018-01-27 10:15] LABS: Alanine Aminotransferase 16 U/L (12-78); Alkaline Phosphatase 101 U/L (45-117); Anion Gap 13 meq/L (5-15); Aspartate Aminotransferase 16 U/L (15-37); Blood Urea Nitrogen 25 mg/dL (7-18); Chloride 106 meq/L (98-107); Glomerular Filtration Rate 45 mL/min (>89); Glucose,Random 273 mg/dL (74-106); Potassium 3.6 meq/L (3.5-5.1); Sodium 141 meq/L (136-145); Total Protein 7.5 g/dL (6.4-8.2)
[2018-01-27] MEDS: Clindamycin 600 mg/NS Premix 600 MG/50 ML PIGGYBACK IV.SIG SCH ×2 (11:36→18:12)
--- NOTE | 2018-01-27 12:28 | US ---
EXAM DATE: 01/27/2018 12:23 PM EDT AGE/SEX: 82 years / Male INDICATIONS: Ascites. CLINICAL DATA: This is the patient's initial encounter. Patient reports that signs and symptoms have been present for 1 week and indicates a pain score of 2/10. MEDICAL/SURGICAL HISTORY: Chronic obstructive pulmonary disease. Atrial fibrillation. Congestiv e heart failure. Diabetes. Skin abnormalities. CABG. Knee replacement. COMPARISON: No prior exams available for comparison. FINDINGS: Masses: None Fluid Collections: No ascites. Incidental pleural effusions. Other: None. CONCLUSION: 1. No evidence for ascites. Incidental pleural effusions. Electronically signed by: Felipe Hernandez MD 01/27/2018 12:27 PM EDT
--- NOTE | 2018-01-27 17:06 | ECHRPT ---
Indication: HEART FAILURE CONCLUSIONS Normal left ventricular size. Wall thickness is normal. The left ventricular systolic function is normal with an estimated ejection fraction in the range of 60-65%. Questionable tiny area of apical akinesis. There is mild tricuspid valve regurgitation. The estimated pulmonary arterial pressure is 70 mmHg. Mild aortic valve sclerosis is present. Mild mitral valve regurgitation. BP: / HR: Rhythm: Sinus MEASUREMENTS (Male / Female) Normal Values Technical Quality:Fair 2D ECHO LV Diastolic Diameter PLAX 4.9 cm 4.2 - 5.9 / 3.9 - 5.3 cm LV Systolic Diameter PLAX 3.0 cm IVS Diastolic Thickness 1.4 cm 0.6 - 1.0 / 0.6 - 0.9 cm LVPW Diastolic Thickness 1.3 cm 0.6 - 1.0 / 0.6 - 0.9 cm LV Relative Wall Thickness 0.5 RV Internal Dim ED PLAX 3.8 cm LVOT Diameter 2.1 cm Aortic Root Diameter 3.6 cm LA Systolic Diameter LX 5.0 cm 3.0 - 4.0 / 2.7 - 3.8 cm M-MODE AV Cusp Separation MM 1.5 cm DOPPLER AV Peak Velocity 215.2 cm/s AV Peak Gradient 18.5 mmHg AV Mean Gradient 9.2 mmHg AV Velocity Time Integral 32.6 cm LVOT Peak Velocity 129.0 cm/s LVOT Peak Gradient 6.7 mmHg LVOT Velocity Time Integral 21.4 cm AV Area Cont Eq vti 2.3 cm AV Area Cont Eq pk 2.1 cm Mitral E Point Velocity 150.5 cm/s LV E' Lateral Velocity 14.9 cm/s Mitral E to LV E' Lateral Ratio 10.1 LV E' Septal Velocity 8.9 cm/s Mitral E to LV E' Septal Ratio 16.9 TR Peak Velocity 443.0 cm/s TR Peak Gradient 78.5 mmHg Right Atrial Pressure 10.0 mmHg Pulmonary Artery Systolic Pressu 88.5 mmHg Right Ventricular Systolic Press 88.5 mmHg PV Peak Velocity 72.6 cm/s PV Peak Gradient 2.1 mmHg FINDINGS LEFT VENTRICLE Normal left ventricular size. Wall thickness is normal. The left ventricular systolic function is normal with an estimated ejection fraction in the range of 60-65%. Questionable tiny area of apical akinesis. RIGHT VENTRICLE Normal right ventricular size and systolic function. LEFT ATRIUM The left atrial size is normal. RIGHT ATRIUM The right atrial size is normal. ATRIAL SEPTUM No atrial level shunt is demonstrated by color flow Doppler interrogation. AORTA The aortic root and proximal ascending aorta are normal in size on limited imaging. MITRAL VALVE Mild mitral valve regurgitation. AORTIC VALVE Mild aortic valve sclerosis is present. TRICUSPID VALVE There is mild tricuspid valve regurgitation. The estimated pulmonary arterial pressure is 70 mmHg. PULMONARY VALVE No pulmonary valve regurgitation or stenosis. Lincoln Ventura MD (Electronically Signed) Final Date:27 January 2018 17:06
[2018-01-27 17:12] LABS: Hemoglobin A1c 5.6 % (4.3-6.0)
--- NOTE | 2018-01-27 19:27 | US ---
EXAM DATE: 01/27/2018 12:52 PM EDT AGE/SEX: 82 years / Male INDICATIONS: Left pleural effusion. CLINICAL DATA: This is the patient's initial encounter. Patient reports that signs and symptoms have been present for 1 day and indicates a pain score of 2/10. MEDICAL/SURGICAL HISTORY: Chronic obstructive pulmonary disease. Atrial fibrillation. Congestiv e heart failure. Diabetes. Skin abnormalities. CABG. Knee replacement. COMPARISON: [facility], CTA PULMONARY W CONTRAST W 3D, 01/26/2018. . MEASUREMENTS: Skin To Parietal Pleura:__2.7 cm Skin To Max Safe Depth:__5.5 cm Estimated Fluid Volume:__423.72 cc Fluid Composition:__simple FINDINGS: No marking was performed. CONCLUSION: Moderate left pleural effusion. Electronically signed by: Matt Wheeler MD 01/27/2018 7:26 PM EDT
[2018-01-28] MEDS: Clindamycin 600 mg/NS Premix 600 MG/50 ML PIGGYBACK IV.SIG SCH ×3 (02:22→17:30)
[2018-01-28] MEDS: MethylPREDNISolone Sod Succinate Inj 40 MG/ML Vial IV.PUSH SCH ×4 (06:23→20:20)
[2018-01-28] MEDS: Senna/Docusate Sodium 8.6/50 MG Tablet PO SCH ×2 (08:11→20:20)
[2018-01-28] MEDS: Insulin NovoLOG Aspart Correctional Sugar Inj SQ SCH ×4 (08:18→20:21)
--- NOTE | 2018-01-28 08:56 | P.PNIM ---
Subjective Interval history: Follow-up CHF exacerbation. Patient seen and examined lying in bed comfortably no apparent distress. Denies any acute events overnight. VSS. Afebrile. Plan for thoracentesis today. Physical Exam Vital signs: Vital Signs 01/27/18 12:00 01/27/18 13:19 01/27/18 16:00 Temperature 97.6 F 96.5 F L Pulse Rate 69 82 79 Respiratory Rate 20 18 20 Blood Pressure 133/65 132/68 Pulse Oximetry 93 L 94 L 01/27/18 20:00 01/27/18 20:50 01/28/18 00:00 Temperature 96.4 F L 96.4 F L Pulse Rate 64 86 91 H Respiratory Rate 18 20 18 Blood Pressure 139/67 128/87 Pulse Oximetry 95 96 93 L 01/28/18 04:00 01/28/18 08:05 Temperature 96.3 F L Pulse Rate 77 94 H Respiratory Rate 18 21 Blood Pressure 126/68 Pulse Oximetry 92 L 94 L Intake & Output 01/27/18 01/28/18 01/28/18 18:59 06:59 18:59 Intake Total 1032 / 1032 0 / 0 50 / 50 Output Total 650 / 650 850 / 850 Balance 382 / 382 -850 / -850 50 / 50 Weight 138.7 kg Intake: IV 100 / 100 50 / 50 Cleocin 600 mg/NS Premix 600 mg 100 / 100 50 / 50 In 50 ml @ 100 mls/hr IV.SIG Q8H ZACHARY Rx#:[id number] Oral 932 / 932 0 / 0 Output: Urine 650 / 650 850 / 850 Other: Date of Last Bowel Movement 01/26/18 Narrative: GENERAL: Well-developed, obese elderly male patient in NAD. On supplemental O2 SKIN: Warm and dry. No rash. HEAD: Normocephalic. Atraumatic. EYES: Pupils equal and round. No scleral icterus. No injection or drainage. ENT: No nasal bleeding or discharge. Mucous membranes pink and moist. NECK: Supple. Trachea midline. CARDIOVASCULAR: Irregularly irregular rhythm. RESPIRATORY: No accessory muscle use. Crackles noted throughout. Breath sounds equal bilaterally. GASTROINTESTINAL: Abdomen soft, non-tender, nondistended. Round. Normoactive bowel sounds x4. MUSCULOSKELETAL: No obvious deformities. Bilateral lower extremities with chronic peripheral vascular disease, 1+ edema with mild erythema NEUROLOGICAL: Awake and alert. No obvious cranial nerve deficits. Motor grossly within normal limits. 5/5 muscle strength in bilateral upper and lower extremities. Normal speech. PSYCHIATRIC: Appropriate mood and affect; insight and judgment normal. Results - Labs CBC & Chem 7: 01/27/18 09:30 01/27/18 09:30 Laboratory Results - last 24 hr 01/26/18 01/27/18 01/27/18 13:10 09:30 09:30 WBC 5.0 RBC 4.73 Hgb 14.3 Hct 43.1 MCV 91.0 MCH 30.2 MCHC 33.2 RDW 13.7 Plt Count 204 MPV 8.7 Sodium 141 Potassium 3.6 Chloride 106 Carbon Dioxide 22.0 Anion Gap 13 BUN 25 H Creatinine 1.50 H Estimated GFR 45 L POC Glucose Random Glucose 273 H D Hemoglobin A1c 5.6 Calcium 8.5 Total Bilirubin 0.8 AST 16 ALT 16 Alkaline Phosphatase 101 Total Protein 7.5 D Albumin 3.8 01/27/18 01/27/18 01/27/18 11:47 17:18 22:04 WBC RBC Hgb Hct MCV MCH MCHC RDW Plt Count MPV Sodium Potassium Chloride Carbon Dioxide Anion Gap BUN Creatinine Estimated GFR POC Glucose 228 H 288 H 275 H Random Glucose Hemoglobin A1c Calcium Total Bilirubin AST ALT Alkaline Phosphatase Total Protein Albumin 01/28/18 07:32 WBC RBC Hgb Hct MCV MCH MCHC RDW Plt Count MPV Sodium Potassium Chloride Carbon Dioxide Anion Gap BUN Creatinine Estimated GFR POC Glucose 225 H Random Glucose Hemoglobin A1c Calcium Total Bilirubin AST ALT Alkaline Phosphatase Total Protein Albumin - Imaging Impressions Abdomen Ultrasound 01/27/18 00:00 CONCLUSION: 1. No evidence for ascites. Incidental pleural effusions. Chest Ultrasound 01/27/18 00:00 CONCLUSION: Moderate left pleural effusion. Assessment and Plan - Assessment (1) Acute exacerbation of CHF (congestive heart failure) Code(s): I50.9 - Heart failure, unspecified Status: Acute - Plan This is an 82-year-old male patient with: Acute exacerbation of CHF, unspecified type with hypoxia and need for supplemental O2. Bilateral pleural effusions suspect secondary above Pulmonary hypertension suspect secondary to above -Patient presented with shortness of breath, bilateral leg swelling. BNP mildly elevated. -D-dimer 1.3 upon presentation. CTA ordered ruled out PE. Pulmonary hypertension noted as well as moderate pleural effusions. -Thoracentesis today. Estimated 900 mL's in right lung and 600 and left. -Started on Lasix 40 mg IV daily. Will change to BID. Monitor intake and output closely. -Echocardiogram reviewed and normal compensated. -Supplemental O2 as needed, keep sats greater than 92%. Requiring 2 L NC. -Does admit to noncompliance regarding CHF management including daily weights and low sodium diet. Education provided. -Supportive care. Hypokalemia, mild: Resolved. Status post replacement. Follow BMP. Diabetes, diet controlled - Hemoglobin A1c ordered, pending. Follow. - Accu-Chek before meals at bedtime, sliding scale, cover as needed. COPD: Methylprednisone given in ED. Will continue IV steroids. Monitor for clinical improvement. Continue duo nebs. Atrial fibrillation, controlled rate: Will continue cardiac telemetry. Patient states he continued his Xarelto at home, Will restart after thoracentesis. Bilateral lower extremity PVD Bilateral lower extremity cellulitis - Discoloration. Trace edema. This is chronic for patient. Follows with a breed to wean production technician. Worsening erythema overnight. Will start Clindamycin. - Encourage elevation. Monitor. DVT prophylaxis: Xarelto. Discharge Planning: Clinical improvement.
--- NOTE | 2018-01-28 14:11 | XR ---
EXAM DATE: 01/28/2018 2:07 PM EDT AGE/SEX: 82 years / Male INDICATIONS: Post right side thoracentesis. CLINICAL DATA: This is the patient's subsequent encounter. Patient reports that signs and symptoms h ave been present for 2 days and indicates a pain score of 0/10. MEDICAL/SURGICAL HISTORY: . Cardiovascular disease. Chronic obstructive pulmonary disease. Mark estive heart failure. A-fibrillation. Diabetes. Anticoagulant therapy. CABG. COMPARISON: [facility], XR CHEST PA AND LAT, 11/11/2016. . FINDINGS: There is no evidence of pneumothorax status post right thoracentesis. No significant residual pleural effusion is noted. Mild perihilar infiltrates are noted consistent with minimal central pulmonary va scular congestion or pneumonia. Clinical correlation is recommended. The heart is enlarged. Median st ernotomy wires are noted status post cardiac surgery. CONCLUSION: 1. No evidence of pneumothorax status post right thoracentesis. 2. Mild perihilar infiltrates are noted consistent with minimal central pulmonary vascular congestio n or pneumonia. Clinical correlation is recommended. 3. Stable cardiomegaly. Electronically signed by: Joshua Paez MD 01/28/2018 2:10 PM EDT
[2018-01-28 15:22] LABS: Basophils,Pleural Fluid 1 %; Lymphocytes,Pleural Fluid 97 %; Neutrophils,Pleural Fluid 2 %
[2018-01-28 15:23] LABS: RBC,Pleural Fluid 6725 /mm3 (0-0)
--- NOTE | 2018-01-28 16:19 | US ---
EXAM DATE: 01/28/2018 2:46 PM EDT AGE/SEX: 82 years / Male INDICATIONS: Right pleural effusion. CLINICAL DATA: This is the patient's initial encounter. Patient reports that signs and symptoms have been present for 1 week and indicates a pain score of 0/10. MEDICAL/SURGICAL HISTORY: Chronic obstructive pulmonary disease. Atrial fibrillation. Congestiv e heart failure. Diabetes. Skin abnormalities. CABG. Knee replacement. COMPARISON: No prior exams available for comparison. FLUID: Total volume of 1,100 cc of cloudy, pinkish-yellow fluid was removed. Fluid was sent to lab for ordered studies. . . TECHNIQUE: Ultrasound guidance for thoracentesis. Thoracentesis. The risks, benefits, and alternatives to ultrasound guided thoracentesis were explained to the patien t in lay simple terms, including the risk of bleeding and infection. Written and verbal informed con sent was obtained. Appropriate area for right thoracentesis was marked under ultrasound guidance with the patient in the upright position. Overlying skin was prepped and draped in the usual sterile fashion and with local anesthetic, a dermatotomy was made with an 11 blade scalpel. A 6 Tongan thoracentesis catheter was placed in the pleural space and fluid was removed. Catheter was then removed and a sterile dressing applied. There were no immediate complications. The patient tolerated the procedure well and the lef t the ultrasound suite in stable condition. Chest radiograph is to be obtained. FINDINGS: Successful ultrasound-guided right thoracentesis was performed and yielded 1100 cc's of cloudy pinkis h-yellow fluid which was sent for laboratory evaluation. The patient tolerated the procedure well wit hout complications. CONCLUSION: 1. Successful ultrasound-guided right thoracentesis as described above. Electronically signed by: Joshua Paez MD 01/28/2018 4:18 PM EDT
[2018-01-28 18:34] LABS: LDH,Pleural Fluid 113 U/L
[2018-01-28 18:37] LABS: Amylase,Pleural Fluid ND U/L; Glucose,Pleural Fluid 241 mg/dL
[2018-01-28 18:53] LABS: Total Protein,Pleural Fluid 3.3 gm/dL
[2018-01-29] MEDS: Clindamycin 600 mg/NS Premix 600 MG/50 ML PIGGYBACK IV.SIG SCH ×2 (00:53→02:24)
[2018-01-29 06:18] LABS: Baso % (Auto) 0.2 % (0.0-2.0); Eos % (Auto) 0.1 % (0.0-4.0); Hematocrit 39.6 % (39.0-51.0); Hemoglobin 13.4 gm/dL (13.0-17.0); Lymph # (Auto) 0.4 th/mm3 (1.0-4.8); Lymph % (Auto) 3.5 % (9.0-44.0); Mean Corpuscular HGB Conc 33.9 % (32.0-36.0); Mean Corpuscular Hemoglobin 30.9 pg (27.0-34.0); Mean Corpuscular Volume 91.4 fL (80.0-100.0); Mean Platelet Volume 8.7 fL (7.0-11.0); Mono # (Auto) 0.7 th/mm3 (0.0-0.9); Mono % (Auto) 5.6 % (0.0-8.0); Neut # (Auto) 11.6 th/mm3 (1.8-7.7); Neut % (Auto) 90.6 % (16.0-70.0); Platelet Count 174 th/mm3 (150-450); Red Blood Count 4.33 mil/mm3 (4.50-5.90); Red Cell Distribution Width 14.1 % (11.6-17.2); White Blood Count 12.7 th/mm3 (4.0-11.0)
[2018-01-29 06:20] LABS: Potassium 3.6 meq/L (3.5-5.1)
[2018-01-29 06:23] LABS: Calcium 8.5 mg/dL (8.5-10.1)
--- NOTE | 2018-01-29 10:13 | P.PNIM ---
Subjective Interval history: Follow-up CHF exacerbation and pleural effusions. Patient seen and examined, sitting on side of bed comfortably in no apparent distress. Continued on supplemental O2. He underwent right thoracentesis yesterday, 1100 output. Will undergo left chest thoracentesis today. Follow-up for clinical improvement. Afebrile. Vital signs stable. Physical Exam Vital signs: Vital Signs 01/28/18 12:20 01/28/18 14:22 01/28/18 17:26 Temperature 96.2 F L 97.5 F L Pulse Rate 82 111 H 102 H Respiratory Rate 20 20 20 Blood Pressure 140/81 144/70 H Pulse Oximetry 94 L 94 L 01/28/18 19:35 01/28/18 20:00 01/29/18 00:00 Temperature 96.2 F L 96.3 F L Pulse Rate 101 H 96 H 111 H Respiratory Rate 20 20 20 Blood Pressure 165/85 H 146/88 H Pulse Oximetry 97 95 94 L 01/29/18 04:00 01/29/18 07:41 01/29/18 08:00 Temperature 96.1 F L 96.0 F L Pulse Rate 81 94 H 98 H Respiratory Rate 22 19 18 Blood Pressure 136/76 151/82 H Pulse Oximetry 96 96 95 Intake & Output 01/28/18 01/29/18 01/29/18 18:59 06:59 18:59 Intake Total 1100 / 1100 290 / 290 Output Total 1200 / 1200 Balance -100 / -100 290 / 290 Weight 138.2 kg Intake: IV 150 / 150 50 / 50 Cleocin 600 mg/NS Premix 600 mg 150 / 150 50 / 50 In 50 ml @ 100 mls/hr IV.SIG Q8H ZACHARY Rx#:[id number] Oral 950 / 950 240 / 240 Output: Urine 1200 / 1200 Other: # Voids 3 Date of Last Bowel Movement 01/26/18 # Bowel Movements 0 Narrative: GENERAL: Well-developed, obese elderly male patient in NAD. On supplemental O2 SKIN: Warm and dry. No rash. HEAD: Normocephalic. Atraumatic. EYES: Pupils equal and round. No scleral icterus. No injection or drainage. ENT: No nasal bleeding or discharge. Mucous membranes pink and moist. NECK: Supple. Trachea midline. CARDIOVASCULAR: Irregularly irregular rhythm. RESPIRATORY: No accessory muscle use. Crackles noted throughout. Breath sounds equal bilaterally. GASTROINTESTINAL: Abdomen soft, non-tender, nondistended. Round. Normoactive bowel sounds x4. MUSCULOSKELETAL: No obvious deformities. Bilateral lower extremities with chronic peripheral vascular disease, 1+ edema with mild erythema NEUROLOGICAL: Awake and alert. No obvious cranial nerve deficits. Motor grossly within normal limits. 5/5 muscle strength in bilateral upper and lower extremities. Normal speech. PSYCHIATRIC: Appropriate mood and affect; insight and judgment normal. - Constitutional no acute distress - Routine HEENT Exam Head: Present: normocephalic Eye: Present: EOMI, PERRL ENT: Present: mucous membranes moist - Routine Neck Exam Present: supple Results - Labs CBC & Chem 7: 01/29/18 04:35 01/29/18 04:35 Laboratory Results - last 24 hr 01/28/18 01/28/18 01/28/18 10:15 11:53 13:40 CBC w Diff WBC RBC Hgb Hct MCV MCH MCHC RDW Plt Count MPV Neut % (Auto) Lymph % (Auto) [place] % (Auto) Eos % (Auto) Baso % (Auto) Neut # (Auto) Lymph # (Auto) [place] # (Auto) Eos # (Auto) Baso # (Auto) WBC Differential Differential Comment Sodium Potassium Chloride Carbon Dioxide Anion Gap BUN 31 H Creatinine 1.30 Estimated GFR 53 L POC Glucose 203 H Random Glucose Calcium Pleural pH 7.5 Pleural RBC Pleural Nuc Cells Pleural Neutrophils Pleural Lymphocytes Pleural Basophils Pleural Total Protein 3.3 Pleural LDH 113 Pleural Glucose 241 Pleural Amylase ND 01/28/18 01/28/18 01/28/18 13:40 16:21 20:13 CBC w Diff WBC RBC Hgb Hct MCV MCH MCHC RDW Plt Count MPV Neut % (Auto) Lymph % (Auto) [place] % (Auto) Eos % (Auto) Baso % (Auto) Neut # (Auto) Lymph # (Auto) [place] # (Auto) Eos # (Auto) Baso # (Auto) WBC Differential Differential Comment Sodium Potassium Chloride Carbon Dioxide Anion Gap BUN Creatinine Estimated GFR POC Glucose 213 H 272 H Random Glucose Calcium Pleural pH Pleural RBC 6725 H Pleural Nuc Cells 235 H Pleural Neutrophils 2 Pleural Lymphocytes 97 Pleural Basophils 1 Pleural Total Protein Pleural LDH Pleural Glucose Pleural Amylase 01/29/18 01/29/18 04:35 04:35 CBC w Diff Auto diff final WBC 12.7 H RBC 4.33 L Hgb 13.4 Hct 39.6 MCV 91.4 MCH 30.9 MCHC 33.9 RDW 14.1 Plt Count 174 MPV 8.7 Neut % (Auto) 90.6 H Lymph % (Auto) 3.5 L [place] % (Auto) 5.6 Eos % (Auto) 0.1 Baso % (Auto) 0.2 Neut # (Auto) 11.6 H Lymph # (Auto) 0.4 L [place] # (Auto) 0.7 Eos # (Auto) 0.0 Baso # (Auto) 0.0 WBC Differential . Differential Comment . Sodium 140 Potassium 3.6 Chloride 106 Carbon Dioxide 25.0 Anion Gap 9 BUN 33 H Creatinine 1.30 Estimated GFR 53 L POC Glucose Random Glucose 264 H Calcium 8.5 Pleural pH Pleural RBC Pleural Nuc Cells Pleural Neutrophils Pleural Lymphocytes Pleural Basophils Pleural Total Protein Pleural LDH Pleural Glucose Pleural Amylase - Imaging Impressions Chest X-Ray 01/28/18 00:00 CONCLUSION: 1. No evidence of pneumothorax status post right thoracentesis. 2. Mild perihilar infiltrates are noted consistent with minimal central pulmonary vascular congestion or pneumonia. Clinical correlation is recommended. 3. Stable cardiomegaly. Thoracentesis Ultrasound 01/28/18 00:00 CONCLUSION: 1. Successful ultrasound-guided right thoracentesis as described above. Assessment and Plan - Assessment (1) Acute exacerbation of CHF (congestive heart failure) Code(s): I50.9 - Heart failure, unspecified Status: Acute - Plan This is an 82-year-old male patient with: Acute exacerbation of CHF, unspecified type with hypoxia and need for supplemental O2. Bilateral pleural effusions suspect secondary above Pulmonary hypertension suspect secondary to above -Patient presented with shortness of breath, bilateral leg swelling. BNP mildly elevated. -D-dimer 1.3 upon presentation. CTA ordered ruled out PE. Pulmonary hypertension noted as well as moderate pleural effusions. -Underwent thoracentesis yesterday on right, 1100 output. Will undergo left sided thoracentesis today. -Started on Lasix 40 mg IV daily. Changed to BID. Diuresing well, will wean to daily. Monitor intake and output closely. -Echocardiogram reviewed and normal compensated heart failure with elevated PAP. -Supplemental O2 as needed, keep sats greater than 92%. Requiring 2 L NC. Wean as tolerated. -Does admit to noncompliance regarding CHF management including daily weights and low sodium diet. Education provided. -Supportive care. Hypokalemia, mild: Resolved. Status post replacement. Follow BMP. Diabetes, diet controlled - Hemoglobin A1c 5.6. - Accu-Chek before meals at bedtime, sliding scale, cover as needed. COPD: Methylprednisone given in ED. Will continue IV steroids. Monitor for clinical improvement. Continue duo nebs. Atrial fibrillation, controlled rate: Will continue cardiac telemetry. Patient states he continued his Xarelto at home, Will restart after thoracentesis. Bilateral lower extremity PVD Bilateral lower extremity cellulitis - Discoloration. Trace edema. This is chronic for patient. Follows with a clinical material handler. Improving erythema overnight. Continue Clindamycin, change to PO. - Encourage elevation. Monitor. DVT prophylaxis: Xarelto. Discharge Planning: Pending clinical improvement.
--- NOTE | 2018-01-29 10:43 | P.DCO ---
- Physical Therapy Order: Evaluate and treat, Improve ambulation - Home Health Nursing Order: Medical education, Telehealth - Certification I have seen patient Matt Bennett on 01/29/18. My clinical findings support the need for the requested home health care services because: Deconditioned with increased weakness, High risk of falls I certify that my clinical findings support that this patient is homebound because: Unsteady gait/balance
[2018-01-29] MEDS: MethylPREDNISolone Sod Succinate Inj 40 MG/ML Vial IV.PUSH SCH (11:22)
[2018-01-29] MEDS: Senna/Docusate Sodium 8.6/50 MG Tablet PO SCH ×2 (11:22→20:43)
[2018-01-29] MEDS: Insulin NovoLOG Aspart Correctional Sugar Inj SQ SCH ×4 (11:23→20:53)
--- NOTE | 2018-01-29 15:43 | MB ---
cc: Gay Andujar MD DATE: 01/29/2018 HISTORY OF PRESENT ILLNESS: Mr. Bennett is an 82-year-old white male whom I have seen over the course of about the last year with a heavy prior smoking history of over 100 pack years and moderately severe COPD. He has been on Anoro as an outpatient and had been stable as of his last visit. In fact, he was due for a routine office visit this week. He presented to the hospital, though, with increasing shortness of breath and a CTA done on 01/26/2018 revealed large bilateral pleural effusions, no pulmonary embolism and some scattered lymph nodes. Also, underlying emphysema. Some nodularity of the liver as well, raising the suspicion of cirrhosis. Since admission, he has had over a liter drained from the right chest, and he is scheduled to have the left chest drained later today. He has been treated with bronchodilators and oxygen and says that he is feeling much better. He also has a significant cardiac history. He had an NM at the age of 54. He had bypass surgery in 2008. Cardiology has also been scheduled to see him in the hospital, as there is probably an element of congestive heart failure here as well. He also has significant chronic lower extremity edema due to venous insufficiency, but no recent history of deep venous thrombosis. He had minimal cough, no purulent sputum or chest pain, no hemoptysis prior to admission. PAST MEDICAL HISTORY: In addition, hypertension, type 2 diabetes, skin cancer, BPH, and CHANDLER untreated because he did not tolerate CPAP. PAST SURGICAL HISTORY: He has had both knees replaced, and he has had 4 back surgeries for degenerative arthritis. ALLERGIES: NONE KNOWN. CURRENT MEDICATIONS: Reviewed in the EMR. He has been placed on albuterol Atrovent nebulized treatments, antibiotics, prophylactic Lovenox, methylprednisolone daily and oxygen. Others are listed. SOCIAL HISTORY: He is originally from [place]. He has lived here now for about a year, but he told me today that at the end of this month, he will be moving back to [place], because that is where his family is. 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 REVIEW OF SYSTEMS: Other than that noted above, he has just been more debilitated, probably as a consequence of his weight, fluid and shortness of breath. PHYSICAL EXAMINATION: GENERAL: He is awake, alert, actually very comfortable at rest. VITAL SIGNS: Afebrile, pulse is 90, blood pressure 150/80, O2 saturation on 2 liters 95%. HEENT: Sclerae are anicteric. Mucous membranes are moist. NECK: Veins are not distended. LUNGS: Breath sounds are diminished, left greater than right. There are no wheezes or rales. No congestion. HEART: No audible S3. Soft systolic murmur. ABDOMEN: Very obese, but soft. EXTREMITIES: He has chronic venous insufficiency with edema in both legs and chronic cellulitis in the distal lower extremities. DISCUSSION: Mr. Bennett presents with a known history of moderate chronic obstructive pulmonary disease, chronic congestive heart failure, chronic edema and now large pleural effusions. One side has been drained, the left is about to be drained. He has gained significant relief and I suspect things will be stable at least temporarily ,as he is planning to move back to [place] within 2 weeks. I would suggest continuing him on oxygen, his nebulized aerosol treatments if needed and Anoro, with which he had been stable prior to the development of these effusions. I do not think anything further needs to be done in the timeframe of the next 2 weeks, but he understands he will have to be stabilized to make that trip. I will not see him routinely, but if I can be of further assistance prior to his relocation to [place], please feel free to call. The patient also knows if anything comes up after discharge from the hospital, prior to his leaving, he can call the office. R. MD LANDRY Galvan/KIERA , 03:07 PM , 03:41 PM
--- NOTE | 2018-01-29 16:27 | XR ---
EXAM DATE: 01/29/2018 4:21 PM EDT AGE/SEX: 82 years / Male INDICATIONS: Status post left sided thoracentesis. CLINICAL DATA: This is the patient's initial encounter. Patient reports that signs and symptoms have been present for 1 day and indicates a pain score of 0/10. MEDICAL/SURGICAL HISTORY: . Cardiovascular disease. Chronic obstructive pulmonary disease. Mark estive heart failure. A-fibrillation. Diabetes. . Anticoagulant therapy. CABG. COMPARISON: Chest x-ray 01/28/2018. FINDINGS: A single frontal expiratory view of the chest was performed. No pneumothorax following left thoracent esis. Patchy areas of consolidation scattered throughout both lungs are unchanged. No effusions on th e current study. Megaly. Median sternotomy wires. CONCLUSION: No pneumothorax following thoracentesis. Electronically signed by: Costa Hines MD 01/29/2018 4:25 PM EDT
[2018-01-29] MEDS ORDERED: Lidocaine 1% Inj 30 ML Vial I-DERMAL ONE (16:52)
[2018-01-29 17:40] LABS: RBC,Pleural Fluid 2678 /mm3 (0-0)
[2018-01-29 18:16] LABS: Lymphocytes,Pleural Fluid 95 %; Neutrophils,Pleural Fluid 5 %
[2018-01-29] MEDS: Metoprolol Tartrate 25 MG Tablet PO SCH (18:28)
[2018-01-29 21:26] LABS: LDH,Pleural Fluid 117 U/L; Total Protein,Pleural Fluid 2.8 gm/dL
[2018-01-29 22:53] LABS: Amylase,Pleural Fluid ND U/L
[2018-01-30] MEDS: Insulin NovoLOG Aspart Correctional Sugar Inj SQ SCH (07:52)
--- NOTE | 2018-01-30 07:52 | P.DS ---
Date of admission: 01/28/18 09:33 Primary care physician: Jluis Luna MD Brief History from admission: This is a pleasant 82-year-old male patient with a history of CHF, COPD, diabetes who presented to the ED with complaints of shortness of breath 2 weeks. Patient states that his symptoms started 2 weeks ago, he has noticed increased shortness of breath especially with exertion, states he has been unable to ambulate greater than 10 feet without having to rest. Patient does have a history of CHF, denies any recent echocardiogram. He is on Lasix but states he does not feel like this is working very well for him. He denies any use of home oxygen. Lives at home with his nephew. He also admits to increasing bilateral leg swelling. He does follow with a occupational health and safety manager, on aware of name at this time, he states that he was placed on Xarelto roughly 1 month ago for chronic atrial fibrillation. Patient states he stopped taking the Xarelto replete 12 days ago due to complaints of feeling like he was getting weaker. He states that he "does not think the benefit outweighs the risk". Patient denies any recent illness including fever, chills, cough, abdominal pain, nausea, vomiting, diarrhea or dysuria. 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 Patient also seen by slab depiler operator for lower extremity PVD. Upon presentation patient's d-dimer was 1.31. Underwent a CTA which shows no PE. Does show some bilateral pleural effusions. Also some pulmonary hypertension. BNP is elevated. DS: Diagnosis - Discharge Diagnosis (1) Acute exacerbation of CHF (congestive heart failure) Status: Acute DS: Medications - Discharge Medications Prescriptions: clindamycin HCl [Cleocin HCl] 300 mg PO Q6HR 4 Days #16 cap furosemide [Lasix] 40 mg PO DAILY 30 Days #30 tab potassium chloride [Klor-Con Sprinkle] 8 meq PO DAILY 30 Days #30 cap prednisone 20 mg PO DAILY 4 Days #4 tab rivaroxaban [Xarelto] 20 mg PO DAILY 30 Days #30 tab DS: Summary Hospital Course: This is an 82-year-old male patient with acute exacerbation of CHF, unspecified type with hypoxia and need for supplemental O2. Bilateral pleural effusions were seen on imaging as well as pulmonary hypertension. Patient presented with shortness of breath, bilateral leg swelling. BNP mildly elevated. D-dimer 1.3 upon presentation. CTA ordered ruled out PE. Pulmonary hypertension noted as well as moderate pleural effusions. Underwent thoracentesis on right, with 1100 output. And left sided thoracentesis roughly 450ml output. Continued on Lasix during hospitalization. Echocardiogram reviewed and normal compensated heart failure with elevated PAP. Supplemental O2 was needed, eventually weaned to RA. Passed walk test. Does admit to noncompliance regarding CHF management including daily weights and low sodium diet. Education provided. Patient was mildly hypokalemic, was given replacement and this was stabilized. Patient has a history of DM, was monitored closely during hospitalization. Patient does have a h/o COPD, pulmonology saw patient during hospitalization, no further input. Hypoxia 2/2 CHF and pleural effusions. These resolved prior to dc. Was given IV steroids and weaned down as well as duo nebs. Patient does have a history of atrial fibrillation, was found to be in A fib RVR at one point during hospitalization, this resolved with metoprolol. Was placed on this for his control and dcd with rate control. Patient's Xarelto restarted as well upon DC. Patient did have bilateral lower ext swelling and erythema, was treated for bilateral lower extremity cellulitis on Clindamycin. This did significantly improve on dc. Edema improved in bilateral lower ext as well. Patient encouraged to follow up with PCP upon dc to follow up. - Time Spent with Patient Total time spent providing and/or coordinating discharge services: Greater than 30 minutes - Quality: VTE Deep Vein Thrombosis/Pulmonary Embolism Present on Admission: No Exam Vital signs: Vital Signs 01/29/18 08:00 01/29/18 12:00 01/29/18 14:26 Temperature 96.0 F L 96.2 F L Pulse Rate 98 H 77 82 Respiratory Rate 18 18 20 Blood Pressure 151/82 H 154/68 H Pulse Oximetry 95 96 01/29/18 15:53 01/29/18 18:00 01/29/18 18:12 Temperature 96.0 F L Pulse Rate 72 114 H 98 H Respiratory Rate 18 Blood Pressure 158/83 H 155/74 H 157/74 H Pulse Oximetry 96 96 01/29/18 19:15 01/29/18 20:00 01/30/18 00:00 Temperature 96.6 F L 96.9 F L Pulse Rate 85 77 80 Respiratory Rate 20 20 20 Blood Pressure 142/70 H 145/79 H Pulse Oximetry 99 94 L 95 01/30/18 05:36 01/30/18 07:34 Temperature Pulse Rate 61 85 Respiratory Rate 18 Blood Pressure Pulse Oximetry 95 Intake & Output 01/29/18 01/30/18 01/30/18 18:59 06:59 18:59 Intake Total 120 / 120 Output Total 375 / 375 Balance -255 / -255 Weight 137.3 kg Intake: Oral 120 / 120 Output: Urine 375 / 375 Other: # Voids 3 Narrative: GENERAL: Well-developed, well-nourished patient in NAD. SKIN: Warm and dry. No rash. HEAD: Normocephalic. Atraumatic. EYES: Pupils equal and round. No scleral icterus. No injection or drainage. ENT: No nasal bleeding or discharge. Mucous membranes pink and moist. NECK: Supple. Trachea midline. CARDIOVASCULAR: Regular rate and rhythm. S1, S2 noted. No murmur appreciated. RESPIRATORY: No accessory muscle use. Clear to auscultation. Breath sounds equal bilaterally. GASTROINTESTINAL: Abdomen soft, non-tender, nondistended. Normoactive bowel sounds x4. MUSCULOSKELETAL: No obvious deformities. Extremities without clubbing, cyanosis , or edema. NEUROLOGICAL: Awake and alert. No obvious cranial nerve deficits. Motor grossly within normal limits. 5/5 muscle strength in bilateral upper and lower extremities. Normal speech. PSYCHIATRIC: Appropriate mood and affect; insight and judgment normal. - Constitutional no acute distress - Routine HEENT Exam Head: Present: normocephalic Eye: Present: EOMI ENT: Present: mucous membranes moist - Routine Neck Exam Present: supple Results Procedures completed during hospitalization: See dc summary. Labs on day of discharge: Labs from last 24 hours 01/29/18 01/29/18 01/29/18 20:47 16:04 16:04 POC Glucose 256 H Pleural RBC 2678 H Pleural Nuc Cells 6 Pleural Neutrophils 5 Pleural Lymphocytes 95 Pleural Total Protein 2.8 Pleural LDH 117 Pleural Amylase ND 01/29/18 11:22 POC Glucose 237 H Pleural RBC Pleural Nuc Cells Pleural Neutrophils Pleural Lymphocytes Pleural Total Protein Pleural LDH Pleural Amylase - Impressions ITS Impressions Chest CTA 01/26/18 13:36 CONCLUSION: 1. No pulmonary embolus. Main pulmonary artery is prominent suggesting some degree of pulmonary hypertension. 2. Moderate bilateral pleural effusions. This probably explains patient's current clinical symptoms. 3. Prominent 2.3 cm lymph node juxtaposed between the esophagus and the aorta near the AP window. Additional prominent lymph node in the right subpleural distribution at the thoracoabdominal junction. This may be reactive. 4. Mild emphysematous changes scattered subpleural cysts. 5. CT findings concerning for some degree of cirrhosis with a small, nodular liver and some ascites in the upper abdomen. Abdomen Ultrasound 01/27/18 00:00 CONCLUSION: 1. No evidence for ascites. Incidental pleural effusions. Chest Ultrasound 01/27/18 00:00 CONCLUSION: Moderate left pleural effusion. Chest X-Ray 01/29/18 00:00 CONCLUSION: No pneumothorax following thoracentesis. Discharge Plan - Discharge Disposition Patient Disposition: /Home Health Service - Discharge Condition Condition: Stable - Discharge Order Discharge Orders: Discharge Order (Routine); Ordered 01/30/18 Ordered By: Jenny Pizano - Discharge Details Anticipated Discharge Date: 01/30/18 Discharge Comment: After walk test. - Physicians Team Primary Care Provider: Jluis Luna Attending Provider: Emilie Landaverde Other Providers: Ming,Sharmainea ; Sean Andujar MD
[2018-01-30] MEDS: Senna/Docusate Sodium 8.6/50 MG Tablet PO SCH (08:22)
[2018-01-30] MEDS: Metoprolol Tartrate 25 MG Tablet PO SCH (08:22)
--- NOTE | 2018-01-30 08:23 | ECG ---
Date Performed: 01/29/2018 Time Performed: 17:14:19 PTAGE: 82 years EKG: ATRIAL FIBRILLATION WITH RAPID VENTRICULAR RESPONSE ANTEROLATERAL MYOCARDIAL INFARCTION ABN ORMAL ECG PREVIOUS TRACING : 01/26/2018 12.54 DOCTOR: Kelsey Richard Interpretating Date/Time 01/30/2018 08:20:02
[2018-01-30] MEDS ORDERED: MethylPREDNISolone Sod Succinate Inj 40 MG/ML Vial IV.PUSH SCH (09:00)
[2018-01-30 15:39] LABS: Amylase, Body Fluid 13 U/L
--- NOTE | 2018-02-02 11:06 | US ---
EXAM DATE: 01/29/2018 4:48 PM EDT AGE/SEX: 82 years / Male INDICATIONS: Left pleural effusion. CLINICAL DATA: This is the patient's subsequent encounter. Patient reports that signs and symptoms h ave been present for 3 days and indicates a pain score of 2/10. MEDICAL/SURGICAL HISTORY: . AFib. Pleural effusion. Bypass graft stenosis. COPD. CHF. Diabetes. . Total knee replacement. CABG. Thoracentesis. COMPARISON: No prior exams available for comparison. FLUID: Total volume of 450 cc of cloudy, pinkish-yellow fluid was removed cc of . fluid was remove d. Fluid was sent to lab for ordered studies. . . TECHNIQUE: Ultrasound guidance for thoracentesis. Thoracentesis. The risks, benefits, and alternatives to ultrasound guided thoracentesis were explained to the patien t in lay simple terms, including the risk of bleeding and infection. Written and verbal informed con sent was obtained. Appropriate area for left thoracentesis was marked under ultrasound guidance with the patient in the upright position. Overlying skin was prepped and draped in the usual sterile fashion and with local anesthetic, a dermatotomy was made with an 11 blade scalpel. A 6 Iraqi thoracentesis catheter was p laced in the pleural space and fluid was removed. Catheter was then removed and a sterile dressing a pplied. There were no immediate complications. The patient tolerated the procedure well and the left the ultrasound suite in stable condition. Chest radiograph is to be obtained. CONCLUSION: 1. Uncomplicated left thoracentesis yielding cloudy fluid. The fluid was sent to lab as requested. Electronically signed by: Costa Hines MD 02/02/2018 11:05 AM EDT
[2018-02-02 17:16] LABS: Amylase, Body Fluid 7 U/L
== END 2018-01-30 10:54 | disposition home health service (06) ==
LOC: PHED 12:35 → INTOOBSV 14:54 → PHEDA 14:54 → UNDODISOB 16:32 → PHEDA 16:41 → PH3 16:49
PROVIDERS: ADMIT Hospitalist; ATTEND Hospitalist